=== PATIENT | male | born 1935 ===

== ENCOUNTER 2021-06-13 01:41 | Emergency (ER) | payer MEDICARE, BC ==
[~2021-06-13] VITALS: Ht 177.8 cm; Wt 102.1 kg
[~2021-06-13 01:41] MED LIST: ASPI325 PO; ATOR20 PO; Aspirin EC81 MG PO; BP MED; CLOP75 PO; DULO30 PO; FINASTERIDE1 MG PO; HYDACE5 PO; IBUP800 PO; LEVO750 PO; LOSA50 PO; LOSHYD100 PO; METO100ER PO; METO50ER PO; TAMS.4ER PO; TEMA30 PO
[2021-06-13 02:10] LABS: BASOPHILS ABSOLUTE AUTO 0.03 K/mm3 (0.00-0.23); BASOPHILS PERCENT AUTO 1 % (0-2); EOSINOPHILS PERCENT AUTO 5 % (0-6); Hemoglobin 12.9 g/dL (13.5-17.5); IMMATURE GRAN ABSOLUTE AUTO 0.02 K/mm3 (0.00-0.10); IMMATURE GRAN PERCENT AUTO 0 % (0-1); LYMPHOCYTES PERCENT AUTO 34 % (21-46); MONOCYTES ABSOLUTE AUTO 0.49 K/mm3 (0.16-1.47); MONOCYTES PERCENT AUTO 8 % (4-13); Mean Corpuscular HGB 31.1 pg (26.0-34.0); Mean Corpuscular HGB Conc 33.1 g/dL (31.5-36.5); Mean Corpuscular Volume 94 fL (80-100); Mean Platelet Volume 10.6 fL (9.1-12.4); NEUTROPHILS ABSOLUTE AUTO 3.38 K/mm3 (1.96-9.15); NEUTROPHILS PERCENT AUTO 53 % (41-73); Platelet Count 187 K/mm3 (150-400); RDW Standard Deviation 44.7 fL (35.1-46.3); Red Blood Cell Count 4.15 M/mm3 (4.30-5.90); White Blood Cell Count 6.42 K/mm3 (4.00-11.30)
[2021-06-13 02:24] LABS: Alanine Aminotransfer (ALT/SGP 14 U/L (12-78); Albumin, Blood 3.4 g/dL (3.4-5.0); Alk Phos 65 U/L (50-136); Anion Gap 4 mmol/L (6-16); Aspartate Aminotrans (AST/SGOT 12 U/L (12-37); Bilirubin, Total 0.4 mg/dL (0.1-1.0); Blood Urea Nitrogen 31 mg/dL (8-24); Bun/Creatinine Ratio 20.5 (12.0-20.0); CO2, Blood 32 mmol/L (21-32); Calcium, Blood 8.7 mg/dL (8.5-10.1); Chloride, Blood 103 mmol/L (98-108); Creatinine, Blood 1.51 mg/dL (0.60-1.20); Globulin, Blood 3.3 g/dL (2.2-4.0); Glomerular Filtration Rate 44 (60-); Glucose, Blood 102 mg/dL (70-99); Potassium, Blood 3.3 mmol/L (3.5-5.5); Sodium, Blood 139 mmol/L (136-145); Total Protein, Blood 6.7 g/dL (6.4-8.2); Troponin I <0.015 ng/mL (0.000-0.040)
[2021-06-13 03:19] LABS: Ethanol (Alcohol), Blood, Med <3 mg/dL
[2021-06-13 04:11] LABS: Source, Urine Clean Catch
[2021-06-13 04:12] LABS: Appearance, Urine Clear (Clear); Bilirubin, Urine Neg (Neg); Blood, Urine Neg (Neg); Color, Urine Yellow (P-Yellow); Glucose Qualitative, Urine Neg (Neg); Ketones, Urine Neg (Neg); Leukocyte Esterase, Urine 1+ (Neg); Nitrite, Urine Neg (Neg); Protein, Urine Neg (Neg); Specific Gravity, Urine 1.015 (1.003-1.022); Urobilinogen, Urine NORM (Normal)
[2021-06-13 04:20] LABS: Bacteria Mod /hpf; Hyaline Casts 0-2 /lpf (0-2); Red Blood Cells, Urine 0-2 /hpf (0-2); Squamous Epithelial Cells Not Seen /hpf (Few); White Blood Cells, Urine 0-2 /hpf (0-5)
== END 2021-06-13 05:18 | disposition home or self-care (01) ==
LOC: ER 01:41
PROVIDERS: Emergency Medicine
DX: R29.6 Repeated falls (principal); R53.1 Weakness; I10 Essential (primary) hypertension; R42 Dizziness and giddiness; R11.0 Nausea; R19.7 Diarrhea, unspecified; Z91.013 Allergy to seafood; Z79.02 Long term (current) use of antithrombotics/antiplatelets; Z79.899 Other long term (current) drug therapy; Z87.891 Personal history of nicotine dependence
CPT/HCPCS: 36415; 71045; 80053; 81001; 83735; 83880; 84145; 84484; 85025; 87086; 93005; 93010; 96374; 99285-25; G0480; J2405

== ENCOUNTER → 2021-10-23 | Outpatient (CLI) | payer MEDICARE, BC ==
[2021-10-23 10:51] LABS: BASOPHILS ABSOLUTE AUTO 0.06 K/mm3 (0.00-0.23); BASOPHILS PERCENT AUTO 1 % (0-2); EOSINOPHILS ABSOLUTE AUTO 0.39 K/mm3 (0.00-0.68); EOSINOPHILS PERCENT AUTO 7 % (0-6); Hemoglobin 11.9 g/dL (13.5-17.5); IMMATURE GRAN ABSOLUTE AUTO 0.01 K/mm3 (0.00-0.10); IMMATURE GRAN PERCENT AUTO 0 % (0-1); LYMPHOCYTES ABSOLUTE AUTO 1.13 K/mm3 (0.84-5.20); LYMPHOCYTES PERCENT AUTO 21 % (21-46); MONOCYTES ABSOLUTE AUTO 0.41 K/mm3 (0.16-1.47); MONOCYTES PERCENT AUTO 8 % (4-13); Mean Corpuscular HGB 30.6 pg (26.0-34.0); Mean Corpuscular HGB Conc 32.2 g/dL (31.5-36.5); Mean Corpuscular Volume 95 fL (80-100); Mean Platelet Volume 9.7 fL (9.1-12.4); NEUTROPHILS ABSOLUTE AUTO 3.39 K/mm3 (1.96-9.15); NEUTROPHILS PERCENT AUTO 63 % (41-73); Platelet Count 222 K/mm3 (150-400); RDW Coefficient Variation 13.3 % (11.7-14.2); RDW Standard Deviation 46.5 fL (35.1-46.3); Red Blood Cell Count 3.89 M/mm3 (4.30-5.90); White Blood Cell Count 5.39 K/mm3 (4.00-11.30)
[2021-10-23 11:09] LABS: Albumin, Blood 3.4 g/dL (3.4-5.0); Albumin/Globulin Ratio 1.2 (0.8-1.8); Bilirubin, Total 0.6 mg/dL (0.1-1.0); Bun/Creatinine Ratio 12.5 (12.0-20.0); Calcium, Blood 9.1 mg/dL (8.5-10.1); Creatinine, Blood 1.28 mg/dL (0.60-1.20); Globulin, Blood 2.9 g/dL (2.2-4.0); Potassium, Blood 4.1 mmol/L (3.5-5.5); Thyroid Stimulating Hormone 1.065 uIU/mL (0.360-4.800); Total Protein, Blood 6.3 g/dL (6.4-8.2)
== END | disposition home or self-care (01) ==
LOC: LAB SHORT 10:44
PROVIDERS: Physician Assistant
DX: L03.90 Cellulitis, unspecified (principal); R53.83 Other fatigue; R60.9 Edema, unspecified
CPT/HCPCS: 80053; 83880; 84443; 85025

== ENCOUNTER 2021-11-15 12:00 | Emergency (ER) | payer MEDICARE, BC ==
[~2021-11-15] VITALS: Ht 177.8 cm; Wt 90.7 kg
[2021-11-15 13:10] LABS: BASOPHILS ABSOLUTE AUTO 0.04 K/mm3 (0.00-0.23); BASOPHILS PERCENT AUTO 1 % (0-2); EOSINOPHILS PERCENT AUTO 3 % (0-6); Hematocrit 41.3 % (37.0-53.0); Hemoglobin 13.3 g/dL (13.5-17.5); IMMATURE GRAN ABSOLUTE AUTO 0.01 K/mm3 (0.00-0.10); IMMATURE GRAN PERCENT AUTO 0 % (0-1); LYMPHOCYTES ABSOLUTE AUTO 0.84 K/mm3 (0.84-5.20); LYMPHOCYTES PERCENT AUTO 12 % (21-46); MONOCYTES ABSOLUTE AUTO 0.52 K/mm3 (0.16-1.47); MONOCYTES PERCENT AUTO 8 % (4-13); Mean Corpuscular HGB 30.5 pg (26.0-34.0); Mean Corpuscular HGB Conc 32.2 g/dL (31.5-36.5); Mean Corpuscular Volume 95 fL (80-100); NEUTROPHILS ABSOLUTE AUTO 5.14 K/mm3 (1.96-9.15); NEUTROPHILS PERCENT AUTO 76 % (41-73); Platelet Count 227 K/mm3 (150-400); RDW Coefficient Variation 13.2 % (11.7-14.2); RDW Standard Deviation 46.7 fL (35.1-46.3); Red Blood Cell Count 4.36 M/mm3 (4.30-5.90); White Blood Cell Count 6.75 K/mm3 (4.00-11.30)
[2021-11-15 13:44] LABS: Alanine Aminotransfer (ALT/SGP 16 U/L (12-78); Albumin, Blood 3.5 g/dL (3.4-5.0); Albumin/Globulin Ratio 1.1 (0.8-1.8); Alk Phos 77 U/L (50-136); Anion Gap 5 mmol/L (6-16); Aspartate Aminotrans (AST/SGOT 19 U/L (12-37); Bilirubin, Total 0.9 mg/dL (0.1-1.0); Blood Urea Nitrogen 19 mg/dL (8-24); Bun/Creatinine Ratio 16.7 (12.0-20.0); CO2, Blood 29 mmol/L (21-32); Calcium, Blood 9.1 mg/dL (8.5-10.1); Chloride, Blood 107 mmol/L (98-108); Creatinine, Blood 1.14 mg/dL (0.60-1.20); Globulin, Blood 3.1 g/dL (2.2-4.0); Glomerular Filtration Rate >60 (60-); Glucose, Blood 119 mg/dL (70-99); Sodium, Blood 141 mmol/L (136-145); Total Protein, Blood 6.6 g/dL (6.4-8.2); Troponin I <0.015 ng/mL (0.000-0.040)
== END 2021-11-15 15:52 | disposition home or self-care (01) ==
LOC: ER 12:00
PROVIDERS: Physician Assistant
DX: R29.6 Repeated falls (principal); I10 Essential (primary) hypertension; Z79.899 Other long term (current) drug therapy; Z87.891 Personal history of nicotine dependence
CPT/HCPCS: 36415; 71046; 80053; 84484; 85025; 93005; 93010; 99284-25

== ENCOUNTER 2021-11-16 13:34 | Emergency (ER) | payer MEDICARE, BC ==
[~2021-11-16] VITALS: Ht 177.8 cm; Wt 99.8 kg
[2021-12-01] MEDS ORDERED: FAMO20 PO (13:53)
[2021-12-01] MEDS ORDERED: 1/2 NS 250ml250 ML (13:54)
[2021-12-01] MEDS ORDERED: NIFE30ER PO (13:54)
== END 2021-11-16 16:39 | disposition home or self-care (01) ==
LOC: ER 13:34
DX: R42 Dizziness and giddiness (principal); R29.6 Repeated falls; M79.89 Other specified soft tissue disorders; R19.7 Diarrhea, unspecified; Z91.030 Bee allergy status; Z79.899 Other long term (current) drug therapy; I10 Essential (primary) hypertension; J44.9 Chronic obstructive pulmonary disease, unspecified; Z87.891 Personal history of nicotine dependence
CPT/HCPCS: 99283

== ENCOUNTER → 2022-03-06 | Outpatient (CLI) | payer MEDICARE, BC ==
[~2022-03-06] MED LIST changes: +1/2 NS 250ml250 ML; +FAMO20 PO; +NIFE30ER PO
[2022-03-06 10:37] LABS: CHOL/HDL RATIO 2.2; Cholesterol 123 mg/dL (50-200); HDL Cholesterol 57 mg/dL (>39); Low Density Lipoprotein Chol 56 mg/dL (0-110); Triglycerides 52 mg/dL (30-160); Very Low Density Lipoprot Chol 10 mg/dL (6-32)
[2022-03-07 07:13] LABS: % FREE PSA 25.2 % (.); PSA, FREE 0.54 ng/mL; PSA, ULTRASENSITIVE 2.14 ng/mL (0.000-4.000)
== END | disposition home or self-care (01) ==
LOC: LAB HH 09:36
PROVIDERS: Family Medicine
DX: N40.1 Benign prostatic hyperplasia with lower urinary tract symptoms (principal); E78.5 Hyperlipidemia, unspecified
CPT/HCPCS: 80061; 84153; 84154

== ENCOUNTER 2022-03-14 10:12 | Emergency (ER) | payer MEDICARE, BC ==
[~2022-03-14] VITALS: Ht 172.7 cm; Wt 81.7 kg
[2022-03-14] MEDS ORDERED: Ventolin5 MG/1 ML INH (10:33)
[2022-03-14] MEDS ORDERED: DOCUZEN 8.6-501 EACH PO (10:33)
[2022-03-14 10:56] LABS: BASOPHILS ABSOLUTE AUTO 0.04 K/mm3 (0.00-0.23); BASOPHILS PERCENT AUTO 1 % (0-2); EOSINOPHILS ABSOLUTE AUTO 0.58 K/mm3 (0.00-0.68); EOSINOPHILS PERCENT AUTO 7 % (0-6); IMMATURE GRAN ABSOLUTE AUTO 0.02 K/mm3 (0.00-0.10); IMMATURE GRAN PERCENT AUTO 0 % (0-1); LYMPHOCYTES PERCENT AUTO 18 % (21-46); MONOCYTES ABSOLUTE AUTO 0.65 K/mm3 (0.16-1.47); MONOCYTES PERCENT AUTO 8 % (4-13); Mean Corpuscular HGB 30.5 pg (26.0-34.0); Mean Corpuscular HGB Conc 32.4 g/dL (31.5-36.5); Mean Corpuscular Volume 94 fL (80-100); Mean Platelet Volume 10.4 fL (9.1-12.4); NEUTROPHILS ABSOLUTE AUTO 5.24 K/mm3 (1.96-9.15); NEUTROPHILS PERCENT AUTO 66 % (41-73); Platelet Count 179 K/mm3 (150-400); RDW Coefficient Variation 14.2 % (11.7-14.2); RDW Standard Deviation 49.4 fL (35.1-46.3); Red Blood Cell Count 3.93 M/mm3 (4.30-5.90); White Blood Cell Count 7.93 K/mm3 (4.00-11.30)
[2022-03-14 11:00] LABS: Source, Urine Clean Catch
[2022-03-14 11:06] LABS: Appearance, Urine Hazy (Clear); Bilirubin, Urine Neg (Neg); Blood, Urine 1+ (Neg); Color, Urine Yellow (P-Yellow); Glucose Qualitative, Urine Neg (Neg); Ketones, Urine Neg (Neg); Leukocyte Esterase, Urine 3+ (Neg); Nitrite, Urine Neg (Neg); Protein, Urine 1+ (Neg); Specific Gravity, Urine 1.005 (1.003-1.022); Urobilinogen, Urine NORM (Normal)
[2022-03-14 11:17] LABS: Bacteria Many /hpf; Squamous Epithelial Cells Rare /hpf (Few); Transitional Epithelial Cells Rare /hpf (0-Rare)
[2022-03-14 11:18] LABS: Hyaline Casts 0-2 /lpf (0-2); Renal Epithelial Rare /hpf (0-Rare)
[2022-03-14 11:18] LABS: Albumin, Blood 3.1 g/dL (3.4-5.0); Calcium, Blood 9.2 mg/dL (8.5-10.1); Creatinine, Blood 1.26 mg/dL (0.60-1.20); Globulin, Blood 3.2 g/dL (2.2-4.0); Potassium, Blood 4.2 mmol/L (3.5-5.5); Total Protein, Blood 6.3 g/dL (6.4-8.2)
[2022-03-14] MEDS ORDERED: CEFP200 PO (12:10)
[2022-03-14] MEDS ORDERED: AZIT250 PO (12:10)
== END 2022-03-14 15:09 | disposition home or self-care (01) ==
LOC: ER 10:12
PROVIDERS: Emergency Medicine
DX: N39.0 Urinary tract infection, site not specified (principal); R05.9 Cough, unspecified; I13.0 Hypertensive heart and chronic kidney disease with heart failure and stage 1 through stage 4 chronic kidney disease, or unspecified chronic kidney disease; N18.30 Chronic kidney disease, stage 3 unspecified; I50.9 Heart failure, unspecified; J44.9 Chronic obstructive pulmonary disease, unspecified; Z86.73 Personal history of transient ischemic attack (TIA), and cerebral infarction without residual deficits; E78.5 Hyperlipidemia, unspecified; F03.90 Unspecified dementia, unspecified severity, without behavioral disturbance, psychotic disturbance, mood disturbance, and anxiety; Z79.02 Long term (current) use of antithrombotics/antiplatelets; Z79.899 Other long term (current) drug therapy; Z91.013 Allergy to seafood
CPT/HCPCS: 71045; 80053; 81001; 85025; J0696

== ENCOUNTER 2022-04-19 04:33 | Emergency (ER) | payer MEDICARE, BC ==
[~2022-04-19] VITALS: Ht 180.3 cm; Wt 90.7 kg
[~2022-04-19 04:33] MED LIST changes: +AZIT250 PO; +CEFP200 PO; +DOCUZEN 8.6-501 EACH PO; +FURO20 PO; +MIRALAX17 GM PO; +Senno8.6 MG PO; +Ventolin5 MG/1 ML INH
== END 2022-04-19 06:36 | disposition home or self-care (01) ==
LOC: ER 04:33
DX: R06.00 Dyspnea, unspecified (principal); I10 Essential (primary) hypertension; J44.9 Chronic obstructive pulmonary disease, unspecified; Z87.891 Personal history of nicotine dependence; Z86.73 Personal history of transient ischemic attack (TIA), and cerebral infarction without residual deficits; Z79.899 Other long term (current) drug therapy
CPT/HCPCS: 93005; 93010; 99284-25

== ENCOUNTER 2022-05-01 15:27 | Inpatient (IN) | payer MEDICARE, BC ==
[~2022-05-01] VITALS: Ht 180.3 cm; Wt 84.0 kg
[~2022-05-01 15:27] MED LIST changes: +ONDA4ODT MM; +SULTRIDS PO
[2022-05-01 16:37] LABS: BASOPHILS ABSOLUTE AUTO 0.04 K/mm3 (0.00-0.23); BASOPHILS PERCENT AUTO 1 % (0-2); EOSINOPHILS ABSOLUTE AUTO 0.15 K/mm3 (0.00-0.68); EOSINOPHILS PERCENT AUTO 2 % (0-6); Hemoglobin 11.3 g/dL (13.5-17.5); IMMATURE GRAN ABSOLUTE AUTO 0.03 K/mm3 (0.00-0.10); IMMATURE GRAN PERCENT AUTO 0 % (0-1); LYMPHOCYTES ABSOLUTE AUTO 1.51 K/mm3 (0.84-5.20); LYMPHOCYTES PERCENT AUTO 19 % (21-46); MONOCYTES PERCENT AUTO 9 % (4-13); Mean Corpuscular HGB 30.5 pg (26.0-34.0); Mean Corpuscular HGB Conc 31.4 g/dL (31.5-36.5); Mean Corpuscular Volume 97 fL (80-100); NEUTROPHILS PERCENT AUTO 69 % (41-73); Platelet Count 249 K/mm3 (150-400); RDW Coefficient Variation 13.4 % (11.7-14.2); RDW Standard Deviation 48.4 fL (35.1-46.3); Red Blood Cell Count 3.71 M/mm3 (4.30-5.90); White Blood Cell Count 7.93 K/mm3 (4.00-11.30)
[2022-05-01 16:49] LABS: Magnesium, Blood 2.6 mg/dL (1.6-2.4)
[2022-05-01 16:50] LABS: Albumin, Blood 2.9 g/dL (3.4-5.0); Albumin/Globulin Ratio 0.9 (0.8-1.8); Bilirubin, Total 0.3 mg/dL (0.1-1.0); Bun/Creatinine Ratio 19.9 (12.0-20.0); Calcium, Blood 8.8 mg/dL (8.5-10.1); Creatinine, Blood 3.02 mg/dL (0.60-1.20); Globulin, Blood 3.2 g/dL (2.2-4.0); Potassium, Blood 5.3 mmol/L (3.5-5.5); Total Protein, Blood 6.1 g/dL (6.4-8.2)
[2022-05-01 21:13] LABS: Influenza A, PCR NEGATIVE (NEGATIVE); Influenza B, PCR NEGATIVE (NEGATIVE); Resp Syncytial Virus, PCR NEGATIVE (NEGATIVE); SARS-Cov-2 (COVID-19) PCR, MMC NEGATIVE (NEGATIVE)
[2022-05-01 22:42] LABS: Source, Urine Straight Cath
[2022-05-01 22:52] LABS: Appearance, Urine Hazy (Clear); Bilirubin, Urine Neg (Neg); Blood, Urine 2+ (Neg); Color, Urine Yellow (P-Yellow); Glucose Qualitative, Urine Neg (Neg); Ketones, Urine Neg (Neg); Leukocyte Esterase, Urine 3+ (Neg); Nitrite, Urine Neg (Neg); Protein, Urine 2+ (Neg); Specific Gravity, Urine 1.015 (1.003-1.022); Urobilinogen, Urine NORM (Normal)
[2022-05-01 23:02] LABS: Bacteria Many /hpf; Red Blood Cells, Urine 0-2 /hpf (0-2); Squamous Epithelial Cells Not Seen /hpf (Few); White Blood Cells, Urine 25-50 /hpf (0-5)
[2022-05-02] MEDS ORDERED: ONDA4ODT MM (04:13)
[2022-05-02] MEDS ORDERED: ALBU90OI (04:15)
[2022-05-02 05:47] LABS: Bun/Creatinine Ratio 21.1 (12.0-20.0); Calcium, Blood 8.7 mg/dL (8.5-10.1); Creatinine, Blood 2.61 mg/dL (0.60-1.20)
--- NOTE | 2022-05-02 07:30 | NUR ---
NEW ADMISSION FROM ER. PT A/O TO SELF AND PLACE VERY FORGETFUL AND NOTED CONFUSION. PT WOULD OCCASIONALLY YELL OUT LOUD FOR DIFFERENT REASONS HOWEVER WAS REDIREACTABLE. PT WITH INCONTINENT EPISODE AND PVR 420s. MATHEWS PLACED PER DR. MORTON. PRESSURE WOUND TO RIGHT BUTTCHEEK PICTURE TAKEN IN CHART. URINE VERY CLOUDY UA SENT AND POSITIVE FOR UTI. NS @125. HERNIA NOTED TO SCROTAL AREA.
--- NOTE | 2022-05-02 17:37 | NUR ---
SHIFT SUMMARY PATIENT DENIES PAIN, NAUSEA, AND SHORTNESS OF BREATH. PATIENT IS BEDREST, AWAITING PT EVAL. PATIENT INTERMITTENTLY CONFUSED. THIS MORNING PATIENT WAS A&O TO SELF, BUT THIS AFTERNOON PATIENT A&O X3. PATIENT DOES OCCASIONALLY YELL OUT, EDUCATED FIELD MARKETING ASSOCIATE LIGHT USE, PATIENT CONTINUED TO YELL OUT. ST EVAL THIS MORNING. NEW ORDERS FOR REGULAR DIET, MED WHOLE WITH APPLESAUCE, AND OCCASSIONAL SUPERVISION WHEN EATING. PATIENT PATIENT EATING AND DRINKING WELL. MATHEWS IS PATENT AND DRAINING YELLOW URINE. PATIENT IS PLEASANT AND COOPERATIVE WITH CARE.
--- NOTE | 2022-05-03 05:17 | NUR ---
SHIFT SUMMARY PT HAS BEEN CONFUSED THIS SHIFT. HE LAYS QUIETLY FOR A FEW MINUTES THEN YELLS OUT SYAING HE NEEDS TO LEAVE OR CANHE STAND AND GET SOMETHING. HE HAS ALSO BEEN HALLUCINATING. SPECIAL EDUCATION ADMINISTRATOR RAMIREZ TO REPORT RYTHYM CHANGES IN THE PT AND STRIPS WERE SENT TO THE CHART. DR WAS CALLED X2 TIMES TO NOTIFY BUT DID NOT RETURN THE CALLS. NO NEW ORDERS GIVEN. STONE PAVER AWARE. WILL ALERT DAY SHIFT OF MEDICATION RECONCILLIATION FOR CARDIAC MEDICATIONS. PT DENIES CHEST PAIN, SOB, OR DIZZINESS. BED IN LOWEST POSITION AND CALL LIGHT IN REACH
--- NOTE | 2022-05-03 18:03 | NUR ---
SHIFT SUMMARY PATIENT DENIES PAIN, NAUSEA, AND SHORTNESS OF BREATH. PATIENT IS A SBA WITH A FWW. PATIENT WORKED WITH PT TODAY. RECOMMENDED HOME HEALTH. PATIENT COGNITION SEEMS TO VARY THROUGHOUT SHIFT. OCCASSIONALLY PATIENT CAN TELL THIS RN WHERE HE IS AND WHERE HE NORMALLY LIVES, SOMETIMES PATIENT CAN ONLY TELL YOU HIS NAME. PATIENT DID HAVE HALLUCINATIONS THIS AFTERNOON, ASKING ABOUT THE "MAN" IN THE CORNER. CAREGIVER FROM [facility] VISITED. PATIENT DOES NOT FOLLOW DIRECTIONS WELL, FORGETS LIMITATIONS. PATIENT YELLS OUT FREQUENTLY, EDUCATED SERVER ASSISTANT LIGHT USE, PATIENT CONTINUES TO YELL OUT. PATIENT IS EATING AND DRINKING WELL. PATIENT IS MOSTLY PLEASANT AND COOPERATIVE WITH CARE. MATHEWS IS PATENT AND DRAINING PALE YELLOW URINE.
[2022-05-03 22:23] LABS: Chloride, Urine, Random 121 mmol/L (55-125); Sodium, Urine, Random 111 mmol/L (20-110)
--- NOTE | 2022-05-04 00:34 | NUR ---
TRANSFER NOTE PT WAS SOB BREATH AND GURGLING UPON SHIFT CHANGE. TAVARES REPORTED THAT A CAREGIVER CAME AND HAD FED HIM A CANDY HE MAY HAVE ASPIRATED ON. HE WAS ALSO SHOWING SIGNS OF FLUID OVERLOAD. PITTING EDEMA, COARSE CRACKLES ION LUNGS, 88% O2 ON RM O2. PT ALSO HAD A MENTATION CHANGE. THE PREVIOUS NIGHT HE WAS ALERT AND COULD HOLD A CONVERSATION. THIS EVENING HE WAS LETHARGIC AND SLURRED HIS WORDS TO THE POINT HE COULD NOT BE UNDERSTOOD.DR WAS NOTIFIED. FLUIDS DC'S, CHEST XRAY ORDERED, AND LASIX ORDERED AND GIVEN. 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 PT WAS STILL SOB AND COULD NOT COMMUNICATE HCEST PAIN. DECISION WAS MADE TO TRANSFER PT TO PCU BY . REPORT GIVEN AND ALL BELONGINGS TAKEN.
--- NOTE | 2022-05-04 01:05 | NUR ---
Pt transferred from medical floor 2330. BP stable, HR 60s (television camera operator reports 3rd degree heart black). MD notified and EKG ordered, showed 1st degree. MD said that if pt goes back into 3rd degree she would like for us to get EKG. RR 26-30, irregular breathing with wheezing and crackles and diminished, MD notified and assessed bedside. Ordered labs, chest xray. Pt is lethargic and only oriented to self and has garbled slurred really hard to understand speech. Pupils are pretty pinpoint and pt has trouble following commands, MD assessed and did follow some directions and appeared to be moving all 4 extremities, but still very hard to understand. tele: 1st degree 60s at this times, zoll is at bedside.
[2022-05-04 01:20] LABS: BASOPHILS ABSOLUTE AUTO 0.05 K/mm3 (0.00-0.23); BASOPHILS PERCENT AUTO 1 % (0-2); EOSINOPHILS ABSOLUTE AUTO 0.42 K/mm3 (0.00-0.68); EOSINOPHILS PERCENT AUTO 5 % (0-6); IMMATURE GRAN ABSOLUTE AUTO 0.02 K/mm3 (0.00-0.10); IMMATURE GRAN PERCENT AUTO 0 % (0-1); LYMPHOCYTES ABSOLUTE AUTO 1.54 K/mm3 (0.84-5.20); LYMPHOCYTES PERCENT AUTO 19 % (21-46); MONOCYTES ABSOLUTE AUTO 0.79 K/mm3 (0.16-1.47); MONOCYTES PERCENT AUTO 10 % (4-13); Mean Corpuscular HGB 30.2 pg (26.0-34.0); Mean Corpuscular HGB Conc 32.4 g/dL (31.5-36.5); Mean Corpuscular Volume 93 fL (80-100); Mean Platelet Volume 9.6 fL (9.1-12.4); NEUTROPHILS ABSOLUTE AUTO 5.22 K/mm3 (1.96-9.15); NEUTROPHILS PERCENT AUTO 65 % (41-73); Platelet Count 231 K/mm3 (150-400); RDW Coefficient Variation 13.1 % (11.7-14.2); RDW Standard Deviation 44.8 fL (35.1-46.3); Red Blood Cell Count 3.97 M/mm3 (4.30-5.90); White Blood Cell Count 8.04 K/mm3 (4.00-11.30)
[2022-05-04 01:39] LABS: Albumin/Globulin Ratio 0.9 (0.8-1.8); Bilirubin, Total 0.5 mg/dL (0.1-1.0); Bun/Creatinine Ratio 23.1 (12.0-20.0); Calcium, Blood 9.1 mg/dL (8.5-10.1); Creatinine, Blood 1.47 mg/dL (0.60-1.20); Globulin, Blood 3.2 g/dL (2.2-4.0); Potassium, Blood 4.3 mmol/L (3.5-5.5); Total Protein, Blood 6.2 g/dL (6.4-8.2)
--- NOTE | 2022-05-04 03:32 | NUR ---
Cardiology referral called into [facility]. [facility] notified me that is the stockbroker on for today. Consult will be given to at 0700 per heart center.
[2022-05-04 03:57] LABS: Magnesium, Blood 1.9 mg/dL (1.6-2.4); Phosphorus, Blood 2.6 mg/dL (2.5-4.9)
--- NOTE | 2022-05-04 04:07 | NUR ---
Cisco Engineer Note: Pt is lethargic, minimally responsive and hard to understand when pt does talk. Pupil are pinpoint and minimally responsive. MD assessed bedside. All extremities moved, but very weak on assessment. Respiratory status: RR 22-30 when he first arrived with crackles in lower lobes, wheezing in upper, irregular resp rate and weak cough, MD assessed bedside. Chest xray ordered, new labs. Pt on 2-3L oxygen, sating high 90s. towards earlier AM pt was trying to cough up sputum in upper airway, still pretty weak cough. Attempted to help suction, but pt is not moving the sputum up much. Tele: mainly 1st degree block. Tele did report 3rd degree block when pt arrived on the floor, but when we did EKG it showed 1st degree. Cardiac consult called in to [facility]. BNP elevated. Humphreys draining well.
--- NOTE | 2022-05-04 09:30 | NUR ---
PT ANGRY WHEN ATTEMPT MADE TO GIVE MEDS, STAtes "leave me alone, get out of here"
--- NOTE | 2022-05-04 11:57 | NUR ---
PT AWAKENED, INITIATING CONVERSATION, TELLS ME HE HS HAD BACK SURGERY IN THE PAST THAT DID NOT HELP DECREASE HIS PAIN, PT STATES HE NEEDS AT LEAST 32 OZ OF WATER TODAY HE IS BECOMING DEHYDRATED. PHONE CALL MADE TO PATIENTS BROTHER LUIS HE HAD CALLED EARLIER TO CHECK ON PATIENT. NO ANSWER AT [facility]IS NUMBER.
--- NOTE | 2022-05-04 17:41 | NUR ---
ALTERNATES BETWEEN SLEEPY , REFUSING CARE TO CONVERSANT AND JOKING. 2 PERSON ASSIST OOB TO COMMODE WITH USE OF GAIT BELT AND WALKER. PT DENIES PAIN. AUDIBLE WHEEZES AFTER EXERTION THOUGH PT DENIED SOB.SPOKE WITH PATINTS BROTHER AND WITH STAFF AT [facility] WHERE PATIENT LIVES
--- NOTE | 2022-05-04 20:36 | NUR ---
Assumed care 1900. SBP 70-80 upon arrival with MAP <65. MD notified and 10mg midodrine ordered and 500ml bolus ordered. Midodrine given and bolus is infusing. HR 60s. Pt is on 2L oxygen sating high 90s. RR: 22-30. Checking BP Q15min
--- NOTE | 2022-05-04 21:07 | NUR ---
Pt BP improved after 500ml bolus and midodrine 10mg, MAP now >65 and SBP >100. Will continue to monitor BP Q30 for the next few hours.
--- NOTE | 2022-05-05 04:01 | NUR ---
Sql Report Analyst Note, Pt is alert/ lethargic on and off. Oriented x3. Talking more and complete sentences tonight. Slept well overnight. Cooperative and took medications. BP was low at start of shift. SBP 70-80s and MAP <65. 500ml bolus, 10mg of midodrine given and MAP>65 and SBP >100. Tele: 1st degree & 2nd degree type 1 heart block rate 50-60s. Q2 turns completed. Humphreys in place and draining well, catheter care completed. Pt is on 2L oxygen sating mid-high 90s. 1/2 NS running 50ml/hr.
[2022-05-05 04:37] LABS: BASOPHILS ABSOLUTE AUTO 0.04 K/mm3 (0.00-0.23); BASOPHILS PERCENT AUTO 1 % (0-2); EOSINOPHILS ABSOLUTE AUTO 0.59 K/mm3 (0.00-0.68); EOSINOPHILS PERCENT AUTO 8 % (0-6); Hematocrit 34.5 % (37.0-53.0); IMMATURE GRAN ABSOLUTE AUTO 0.02 K/mm3 (0.00-0.10); IMMATURE GRAN PERCENT AUTO 0 % (0-1); LYMPHOCYTES ABSOLUTE AUTO 1.82 K/mm3 (0.84-5.20); LYMPHOCYTES PERCENT AUTO 24 % (21-46); MONOCYTES ABSOLUTE AUTO 0.79 K/mm3 (0.16-1.47); MONOCYTES PERCENT AUTO 10 % (4-13); Mean Corpuscular HGB 30.1 pg (26.0-34.0); Mean Corpuscular HGB Conc 31.9 g/dL (31.5-36.5); Mean Corpuscular Volume 95 fL (80-100); NEUTROPHILS ABSOLUTE AUTO 4.39 K/mm3 (1.96-9.15); NEUTROPHILS PERCENT AUTO 57 % (41-73); Platelet Count 223 K/mm3 (150-400); RDW Coefficient Variation 13.3 % (11.7-14.2); RDW Standard Deviation 46.3 fL (35.1-46.3); Red Blood Cell Count 3.65 M/mm3 (4.30-5.90); White Blood Cell Count 7.65 K/mm3 (4.00-11.30)
[2022-05-05 05:00] LABS: Bun/Creatinine Ratio 25.4 (12.0-20.0); Creatinine, Blood 1.42 mg/dL (0.60-1.20); Potassium, Blood 4.4 mmol/L (3.5-5.5)
--- NOTE | 2022-05-05 17:42 | NUR ---
SHIFT SUMMARY; ASSUMED CARE AT 0700. A/A/OX3 DURING SHIFT. COOPERATIVE WITH CARE. WORKED WITH PHYSICAL THERAPY AND AMBULATED WITH WALKER, UP TO CHAIR AT BEDSIDE. ENCOURAGED CONTINUED MOVEMENT TO GAIN STRENGTH. VSS, SATS 95% ON RA. SPEECH EVAL TODAY. MATHEWS IN PLACE DRAINING TO GRAVITY. MEPILEX ON SACRUM FOR REDNESS AND LIGHT BREAKDOWN. NS INFUSING AT 50ML/HR. WILL CONTINUE TO MONITOR AND TREAT UNTIL CHANGE OF SHIFT.
--- NOTE | 2022-05-05 20:29 | NUR ---
Assumed care 1900. VSS on RA. Pt alert and oreinted x3. Tele: 1st degree/ 2nd degree type 1 60-70s. Juliann patent and draining. Will continue to monitor.
--- NOTE | 2022-05-05 21:50 | NUR ---
Pt was requesting inhaler instead of albuterol neb, Called Dr. Garrison and new order placed prn.
--- NOTE | 2022-05-06 04:18 | NUR ---
Property Claims Adjuster Note: Pt is alert and oriented x3. Pt will call out and not use call light often, with frequent reminders. VSS on RA. Q2hr turns completed. 1/2NS running at 50ml/hr. Humphreys in place and draining well. Tele: 1st degree/ 2nd degree type 1 HR in 50-70s. Wound on buttocks w/ mepalex and small sore near penis. Multiple other small skin tears, brusing and reddended skin.
--- NOTE | 2022-05-06 18:26 | NUR ---
DAYSHIFT SUMMARY Patient transferred from PCU, handoff report given by Jess HAYES. Patient AO, disoriented to time/situation at times. Normal saline infusing via left AC. Humphreys cath in place, draining to gravity, urine WNL. Patient worked with therapy SBAx1 for mobility. Aspiration precautions ordered, supervision during meals per PLATE MILL HAND order. Vitals stable.
[2022-05-07 05:09] LABS: BASOPHILS ABSOLUTE AUTO 0.03 K/mm3 (0.00-0.23); BASOPHILS PERCENT AUTO 1 % (0-2); EOSINOPHILS ABSOLUTE AUTO 0.49 K/mm3 (0.00-0.68); EOSINOPHILS PERCENT AUTO 8 % (0-6); Hemoglobin 10.8 g/dL (13.5-17.5); IMMATURE GRAN ABSOLUTE AUTO 0.01 K/mm3 (0.00-0.10); IMMATURE GRAN PERCENT AUTO 0 % (0-1); LYMPHOCYTES ABSOLUTE AUTO 1.66 K/mm3 (0.84-5.20); LYMPHOCYTES PERCENT AUTO 28 % (21-46); MONOCYTES ABSOLUTE AUTO 0.55 K/mm3 (0.16-1.47); MONOCYTES PERCENT AUTO 9 % (4-13); Mean Corpuscular HGB 30.8 pg (26.0-34.0); Mean Corpuscular HGB Conc 32.7 g/dL (31.5-36.5); Mean Corpuscular Volume 94 fL (80-100); Mean Platelet Volume 9.9 fL (9.1-12.4); NEUTROPHILS ABSOLUTE AUTO 3.11 K/mm3 (1.96-9.15); NEUTROPHILS PERCENT AUTO 53 % (41-73); Platelet Count 208 K/mm3 (150-400); RDW Coefficient Variation 13.4 % (11.7-14.2); RDW Standard Deviation 46.4 fL (35.1-46.3); Red Blood Cell Count 3.51 M/mm3 (4.30-5.90); White Blood Cell Count 5.85 K/mm3 (4.00-11.30)
[2022-05-07 05:53] LABS: Albumin, Blood 2.3 g/dL (3.4-5.0); Anion Gap 5 mmol/L (6-16); Blood Urea Nitrogen 18 mg/dL (8-24); Bun/Creatinine Ratio 19.3 (12.0-20.0); CO2, Blood 31 mmol/L (21-32); Calcium, Blood 8.7 mg/dL (8.5-10.1); Chloride, Blood 107 mmol/L (98-108); Creatinine, Blood 0.93 mg/dL (0.60-1.20); Glomerular Filtration Rate 79 (60-); Glucose, Blood 90 mg/dL (70-99); Magnesium, Blood 1.7 mg/dL (1.6-2.4); Phosphorus, Blood 2.3 mg/dL (2.5-4.9); Potassium, Blood 4.1 mmol/L (3.5-5.5); Sodium, Blood 143 mmol/L (136-145)
--- NOTE | 2022-05-07 11:00 | NUR ---
PATIENTS THOUGHTS ARE FOCUSED ON THE BANDS HE NEEDS FOR STRENGTH TRAINING HIS EXTREMITIES SO THAT HE WILL BE ABLE TO PASS THE "STATE STRENGTH TEST" IN ORDER TO GO BACK TO HIS [facility]. PT WAS UPDATED, AND ALTHOUGH THEY HAD NOT PLANNED ON VISITING THIS PATIENT TODAY, THEY WILL MAKE TIME TO TALK WITH HIM AND PROVIDE HIM WITH WHAT HE NEEDS. PATIENT ALSO TALKS ABOUT AN INHALER THAT HE NEEDS- THERE IS A NEW ORDER OF TODAY, FOR AN INHALER.
--- NOTE | 2022-05-07 16:58 | NUR ---
PATEINT HAS BEEN IN A GOOD MOOD THIS SHIFT. HE WORKED WITH PT, WALKING THE HALLWAY. HE HAS EXERCISE BANDS IN HIS ROOM FOR STRENGTHENING. HE REQUESTED MILK WITH MEALS (THICK IT NEEDED FOR NECTER THICK CONSISTENCY). APPETITE APPEARS TO BE SOMEWHAT DECREASED BUT HE EATS A SMALL PORTION OF EACH MEAL. LUNG SOUNDS ARE DIMINISHED BUT THEY DO NOT SOUND COURSE. PLAN IS A DISCHARGE BACK TO HIS [facility] AFTER THEY ASSESS HIS STRENGTH.
--- NOTE | 2022-05-08 04:03 | NUR ---
SHIFT SUMMARY: A/OX3, 1-2 PERSON ASSIST WITH WALKER FOR AMBULATION. PT CONTINUED TO DECLINE REPOSITIONING THROUGHOUT THE NIGHT- REQUESTING TO LAY SUPINE REPORTING "THIS IS THE ONLY WAY I AM COMFORTABLE TO SLEEP". MATHEWS CATHETER REMAINS IN PLACE AND DRAINING WELL. NO COMPLAINTS OF PAIN OR SHORTNESS OF BREATH THROUGHOUT THE NIGHT. BED ALARM REMAINS ACTIVATED, CALL SILVA AND BELONINGS IN REACH, BED IN LOW POSITION.
[2022-05-08 05:40] LABS: BASOPHILS ABSOLUTE AUTO 0.03 K/mm3 (0.00-0.23); BASOPHILS PERCENT AUTO 1 % (0-2); EOSINOPHILS ABSOLUTE AUTO 0.49 K/mm3 (0.00-0.68); EOSINOPHILS PERCENT AUTO 9 % (0-6); Hematocrit 32.7 % (37.0-53.0); Hemoglobin 10.6 g/dL (13.5-17.5); IMMATURE GRAN ABSOLUTE AUTO 0.02 K/mm3 (0.00-0.10); IMMATURE GRAN PERCENT AUTO 0 % (0-1); LYMPHOCYTES ABSOLUTE AUTO 1.84 K/mm3 (0.84-5.20); LYMPHOCYTES PERCENT AUTO 34 % (21-46); MONOCYTES ABSOLUTE AUTO 0.47 K/mm3 (0.16-1.47); MONOCYTES PERCENT AUTO 9 % (4-13); Mean Corpuscular HGB 30.5 pg (26.0-34.0); Mean Corpuscular HGB Conc 32.4 g/dL (31.5-36.5); Mean Corpuscular Volume 94 fL (80-100); NEUTROPHILS ABSOLUTE AUTO 2.61 K/mm3 (1.96-9.15); NEUTROPHILS PERCENT AUTO 48 % (41-73); Platelet Count 208 K/mm3 (150-400); RDW Coefficient Variation 13.3 % (11.7-14.2); RDW Standard Deviation 46.1 fL (35.1-46.3); Red Blood Cell Count 3.47 M/mm3 (4.30-5.90); White Blood Cell Count 5.46 K/mm3 (4.00-11.30)
[2022-05-08 05:57] LABS: Albumin, Blood 2.4 g/dL (3.4-5.0); Anion Gap 3 mmol/L (6-16); Blood Urea Nitrogen 15 mg/dL (8-24); Bun/Creatinine Ratio 15.9 (12.0-20.0); CO2, Blood 32 mmol/L (21-32); Calcium, Blood 8.7 mg/dL (8.5-10.1); Chloride, Blood 107 mmol/L (98-108); Creatinine, Blood 0.95 mg/dL (0.60-1.20); Glomerular Filtration Rate 77 (60-); Glucose, Blood 93 mg/dL (70-99); Magnesium, Blood 1.7 mg/dL (1.6-2.4); Phosphorus, Blood 2.3 mg/dL (2.5-4.9); Potassium, Blood 4.2 mmol/L (3.5-5.5); Sodium, Blood 142 mmol/L (136-145)
--- NOTE | 2022-05-08 17:23 | NUR ---
SHIFT SUMMARY- PT ALERT AND ORIENTED X3 POOR HISTORIAN. PT SEEMS TO BE FIXATED ON BEING EVALUATED TO GO HOME TOMORROW TO HIS [facility]. PT GOT UP AND WORKED WITH PHYSICAL THERAPY AND THEN BECAME ANGRY WITH STAFF WHEN THEY WERE UNABLE TO TAKE TIME, WHEN HE WANTED, TO TAKE HIM FOR A WALK AND TO DO HIS SIT TO STAND EXERCISES. PT BECAME ANGRY AND USED NAME CALLING A RESORT, INSISTING STAFF WERE JUST LAZY. EVENTUALLY STAFF WERE ABLE TO STAND BY WHILE THE PT PERFORMED HIS EXERCISES AND ASSIT HIM TO AMBULATE IN THE HALLS. PT DID MULTIPLE SIT TO STANDS. THE PT IS UNDER THE IMPRESSION THAT IF HE DOES NOT PASS HIS TESTING TOMORROW HE WILL BE HOMELESS, SO HE IS DEDICATED TO GETTING STRONGER.
--- NOTE | 2022-05-09 05:40 | NUR ---
SHIFT SUMMARY: A/OX3, 2 PERSON ASSIST TO TURN IN BED. PT CONTINUES TO DECLINE FULL BODY REPOSITIONING TO LAY ON SIDE. REQUEST TO LAY SUPINE FOR SLEEP. CONTINUED ENCOURAGEMENT FOR TURNING AND REPOSITIONING. NO COMPLAINTS OF PAIN OR SHORTNESS OF BREATH THROUGHOUT THE NIGHT. MATHEWS CATH REMAINS IN PLACE, DRAINING WELL WITH ADEQUATE OUTPUT.
[2022-05-09 06:16] LABS: BASOPHILS ABSOLUTE AUTO 0.03 K/mm3 (0.00-0.23); BASOPHILS PERCENT AUTO 1 % (0-2); EOSINOPHILS ABSOLUTE AUTO 0.57 K/mm3 (0.00-0.68); EOSINOPHILS PERCENT AUTO 10 % (0-6); Hematocrit 32.6 % (37.0-53.0); Hemoglobin 10.4 g/dL (13.5-17.5); IMMATURE GRAN ABSOLUTE AUTO 0.01 K/mm3 (0.00-0.10); IMMATURE GRAN PERCENT AUTO 0 % (0-1); LYMPHOCYTES ABSOLUTE AUTO 1.75 K/mm3 (0.84-5.20); LYMPHOCYTES PERCENT AUTO 29 % (21-46); MONOCYTES PERCENT AUTO 8 % (4-13); Mean Corpuscular HGB 30.5 pg (26.0-34.0); Mean Corpuscular HGB Conc 31.9 g/dL (31.5-36.5); Mean Corpuscular Volume 96 fL (80-100); Mean Platelet Volume 10.3 fL (9.1-12.4); NEUTROPHILS ABSOLUTE AUTO 3.17 K/mm3 (1.96-9.15); NEUTROPHILS PERCENT AUTO 53 % (41-73); Platelet Count 220 K/mm3 (150-400); RDW Coefficient Variation 13.6 % (11.7-14.2); RDW Standard Deviation 47.8 fL (35.1-46.3); Red Blood Cell Count 3.41 M/mm3 (4.30-5.90); White Blood Cell Count 6.03 K/mm3 (4.00-11.30)
[2022-05-09 06:25] LABS: Albumin, Blood 2.3 g/dL (3.4-5.0); Anion Gap 2 mmol/L (6-16); Blood Urea Nitrogen 13 mg/dL (8-24); Bun/Creatinine Ratio 11.6 (12.0-20.0); CO2, Blood 32 mmol/L (21-32); Calcium, Blood 8.3 mg/dL (8.5-10.1); Chloride, Blood 106 mmol/L (98-108); Creatinine, Blood 1.12 mg/dL (0.60-1.20); Glomerular Filtration Rate 63 (60-); Glucose, Blood 95 mg/dL (70-99); Phosphorus, Blood 3.1 mg/dL (2.5-4.9); Potassium, Blood 4.4 mmol/L (3.5-5.5); Sodium, Blood 140 mmol/L (136-145)
[2022-05-09] MEDS ORDERED: QUET25 PO (11:38)
[2022-05-09] MEDS ORDERED: CEFD300 PO (11:38)
--- NOTE | 2022-05-09 16:29 | NUR ---
DISCHARGE NOTE- PT WAS GIVEN VERBAL AND WRITTEN DISCHARGE INSTRUCTIONS AND WAS TAKEN VIA W/C TRANSPORT TO HIS [facility]. PT ACKNOWLEDGED UNDERSTANDING OF THE INSTRUCTIONS, THE POULTRY DEBEAKER OF THE TRANSPORT TOOK THE DISCHARGE PAPERS TO PROVIDE TO THE [facility] STAFF WHEN THE PT ARRIVES. NO S&S OF DISTRESS AT THE TIME OF DISCHARGE, IV'S AND TELE DC'D EARLIER IN THE SHIFT.
[2022-05-29] MEDS ORDERED: CEPH500 PO (21:19)
[2022-07-01] MEDS ORDERED: CEFP200 PO (13:38)
[2022-07-06] MEDS ORDERED: FURO20 PO (17:11)
[2022-07-06] MEDS ORDERED: Acetaminophen325 M1 PO (17:11)
== END 2022-05-09 16:25 | disposition home health service (06) | DRG 682 ==
LOC: ER 15:27 → MEDS 18:55 → PCU 05-04 00:30 → MEDS 05-06 12:57
PROVIDERS: Emergency Medicine; Family Medicine; Hospitalist; ADMIT Internal Medicine
DX: N17.9 Acute kidney failure, unspecified (principal); G92.9 Unspecified toxic encephalopathy; I50.33 Acute on chronic diastolic (congestive) heart failure; I13.0 Hypertensive heart and chronic kidney disease with heart failure and stage 1 through stage 4 chronic kidney disease, or unspecified chronic kidney disease; N39.0 Urinary tract infection, site not specified; I95.9 Hypotension, unspecified; N18.30 Chronic kidney disease, stage 3 unspecified; I44.1 Atrioventricular block, second degree; J44.9 Chronic obstructive pulmonary disease, unspecified; R09.02 Hypoxemia; Z20.822 Contact with and (suspected) exposure to COVID-19; R33.9 Retention of urine, unspecified; N40.1 Benign prostatic hyperplasia with lower urinary tract symptoms; N31.9 Neuromuscular dysfunction of bladder, unspecified; E78.5 Hyperlipidemia, unspecified; K57.90 Diverticulosis of intestine, part unspecified, without perforation or abscess without bleeding; F03.90 Unspecified dementia, unspecified severity, without behavioral disturbance, psychotic disturbance, mood disturbance, and anxiety; E78.00 Pure hypercholesterolemia, unspecified; M48.061 Spinal stenosis, lumbar region without neurogenic claudication; B96.5 Pseudomonas (aeruginosa) (mallei) (pseudomallei) as the cause of diseases classified elsewhere; L98.419 Non-pressure chronic ulcer of buttock with unspecified severity; Z86.73 Personal history of transient ischemic attack (TIA), and cerebral infarction without residual deficits; Z90.79 Acquired absence of other genital organ(s); Z79.899 Other long term (current) drug therapy; Z98.49 Cataract extraction status, unspecified eye; Z98.890 Other specified postprocedural states; Z91.013 Allergy to seafood; Z79.51 Long term (current) use of inhaled steroids; Z79.02 Long term (current) use of antithrombotics/antiplatelets; Z79.01 Long term (current) use of anticoagulants; Z87.891 Personal history of nicotine dependence
CPT/HCPCS: 0241U; 36415; 71045; 76770; 80048; 80053; 80069; 81001; 82436; 82947; 83735; 83880; 84100; 84300; 84484; 85025; 87077; 87086; 87186; 92526; 92610; 93005; 93010; 94640; 94664; 94760; 94762; 96374; 97110; 97116; 97162; 97530; 99283; 99285-25; A9270; J0696; J1644; J1940; J3475; J7030; J7040; J7060

== ENCOUNTER → 2022-06-08 | Outpatient (CLI) | payer MEDICARE, BC ==
[~2022-06-08] MED LIST changes: +ALBU90OI; +CEFD300 PO; +CEPH500 PO; +QUET25 PO
[2022-06-08 18:55] LABS: BASOPHILS ABSOLUTE AUTO 0.04 K/mm3 (0.00-0.23); BASOPHILS PERCENT AUTO 1 % (0-2); EOSINOPHILS ABSOLUTE AUTO 0.38 K/mm3 (0.00-0.68); EOSINOPHILS PERCENT AUTO 7 % (0-6); Hematocrit 34.1 % (37.0-53.0); Hemoglobin 10.9 g/dL (13.5-17.5); IMMATURE GRAN ABSOLUTE AUTO 0.01 K/mm3 (0.00-0.10); IMMATURE GRAN PERCENT AUTO 0 % (0-1); LYMPHOCYTES PERCENT AUTO 26 % (21-46); MONOCYTES PERCENT AUTO 9 % (4-13); Mean Corpuscular HGB 30.4 pg (26.0-34.0); Mean Corpuscular Volume 95 fL (80-100); Mean Platelet Volume 10.3 fL (9.1-12.4); NEUTROPHILS ABSOLUTE AUTO 3.03 K/mm3 (1.96-9.15); NEUTROPHILS PERCENT AUTO 57 % (41-73); Platelet Count 218 K/mm3 (150-400); RDW Coefficient Variation 13.7 % (11.7-14.2); RDW Standard Deviation 48.1 fL (35.1-46.3); Red Blood Cell Count 3.59 M/mm3 (4.30-5.90); White Blood Cell Count 5.36 K/mm3 (4.00-11.30)
[2022-06-08 20:01] LABS: Albumin, Blood 2.7 g/dL (3.4-5.0); Anion Gap 6 mmol/L (6-16); Blood Urea Nitrogen 19 mg/dL (8-24); Bun/Creatinine Ratio 18.3 (12.0-20.0); CO2, Blood 28 mmol/L (21-32); Calcium, Blood 8.5 mg/dL (8.5-10.1); Chloride, Blood 106 mmol/L (98-108); Creatinine, Blood 1.04 mg/dL (0.60-1.20); Glomerular Filtration Rate 69 (60-); Glucose, Blood 119 mg/dL (70-99); Phosphorus, Blood 2.8 mg/dL (2.5-4.9); Potassium, Blood 3.8 mmol/L (3.5-5.5); Sodium, Blood 140 mmol/L (136-145)
== END | disposition home or self-care (01) ==
LOC: LAB SHORT 11:23 → LAB 11:23
PROVIDERS: Physician Assistant
DX: N18.31 Chronic kidney disease, stage 3a (principal)
CPT/HCPCS: 80069; 85025

== ENCOUNTER → 2022-08-21 | Outpatient (CLI) | payer MEDICARE, BC ==
[~2022-08-21] MED LIST changes: +Acetaminophen325 M1 PO
== END | disposition home or self-care (01) ==
LOC: LAB 12:36 → LAB SHORT 12:36
DX: A49.9 Bacterial infection, unspecified (principal); C44.622 Squamous cell carcinoma of skin of right upper limb, including shoulder
CPT/HCPCS: 87070; 87077; 87186; 87205

== ENCOUNTER 2022-10-03 07:21 | Day surgery (SDC) | payer MEDICARE, BC ==
[~2022-10-03] VITALS: Ht 180.3 cm; Wt 90.9 kg
[~2022-10-03 07:21] MED LIST changes: -ALBU90OI; +ALBU90OI INH
--- NOTE | 2022-10-03 09:51 | NUR ---
Wheelchair into Day Surgery from Radiology department. History, Chart, Medications and Allergies reviewed before start of procedure. Lungs wheezing throughout. No SOB noted. Pre-Op teaching done. Pt verbalizes understanding.
--- NOTE | 2022-10-03 15:16 | NUR ---
Mera Villegas warming gown applied. Discharge instructions reviewed with patient. Patient verbalizes understanding. Copy given to patient to take home. History, Chart, Medications and Allergies reviewed before start of procedure.Patient States Post-Procedure ride home has been arranged. Discharged via wheelchair to private car for ride home.
--- NOTE | 2022-10-04 07:11 | NUR ---
10/04/22 0711 Sudha Valles VERIFICATIONS: EDIT CHART.
== END 2022-10-03 15:19 | disposition home or self-care (01) ==
LOC: ORSCMMR 07:21 → NM 07:21 → ORSCMMR 07:23 → NM 08:00
PROVIDERS: Surgery
PROC: 07B50ZZ Excision of Right Axillary Lymphatic, Open Approach (ICD-10-PCS; principal; 2022-10-03 10:15)
PROC: 0HR7X73 Replacement of Abdomen Skin with Autologous Tissue Substitute, Full Thickness, External Approach (ICD-10-PCS; principal; 2022-10-03 10:15)
DX: C43.61 Malignant melanoma of right upper limb, including shoulder (principal); N18.30 Chronic kidney disease, stage 3 unspecified; F32.A Depression, unspecified; I50.32 Chronic diastolic (congestive) heart failure; K21.9 Gastro-esophageal reflux disease without esophagitis; E78.5 Hyperlipidemia, unspecified; I13.0 Hypertensive heart and chronic kidney disease with heart failure and stage 1 through stage 4 chronic kidney disease, or unspecified chronic kidney disease; Z86.73 Personal history of transient ischemic attack (TIA), and cerebral infarction without residual deficits; Z87.891 Personal history of nicotine dependence
CPT/HCPCS: 78195; 88305; 88307; 88341; 88342; A9270; A9520; J0690; J1100; J2370; J2405; J2704; J2795; J3010; J7120; Q9968

== ENCOUNTER → 2022-10-05 | Outpatient (CLI) | payer MEDICARE, BC ==
[~2022-10-05] MED LIST changes: +CIPR250 PO; +HYDR1TAB94 PO; +KLOR-CON 1010 ME1 PO; +MUPIROCIN1 G1 TOP; +SILVADENE20 G1 TOP
[2022-10-05 13:47] LABS: Source, Urine Clean Catch
[2022-10-05 14:18] LABS: Appearance, Urine Cloudy (Clear); Bilirubin, Urine Neg (Neg); Blood, Urine 4+ (Neg); Glucose Qualitative, Urine Neg (Neg); Ketones, Urine Neg (Neg); Leukocyte Esterase, Urine 3+ (Neg); Nitrite, Urine Pos (Neg); Protein, Urine 2+ (Neg); Specific Gravity, Urine 1.005 (1.003-1.022); Urobilinogen, Urine NORM (Normal)
[2022-10-05 14:26] LABS: Bacteria Many /hpf; Squamous Epithelial Cells Rare /hpf (Few)
[2022-10-05 14:27] LABS: Hyaline Casts 0-2 /lpf (0-2); White Blood Cells, Urine 50-100 /hpf (0-5)
[2022-10-05 14:30] LABS: Color, Urine Pale Yellow (P-Yellow)
== END | disposition home or self-care (01) ==
LOC: LAB SHORT 11:45
PROVIDERS: Family Medicine
DX: R30.0 Dysuria (principal)
CPT/HCPCS: 81001; 87077; 87086; 87186

== ENCOUNTER 2022-10-06 15:17 | Inpatient (IN) | payer MEDICARE, BC ==
[~2022-10-06] VITALS: Ht 180.3 cm; Wt 82.5 kg
[~2022-10-06 15:17] MED LIST changes: -CIPR250 PO; -HYDR1TAB94 PO; -KLOR-CON 1010 ME1 PO; -MUPIROCIN1 G1 TOP; -SILVADENE20 G1 TOP
[2022-10-06 15:59] LABS: BASOPHILS ABSOLUTE AUTO 0.03 K/mm3 (0.00-0.23); BASOPHILS PERCENT AUTO 0 % (0-2); EOSINOPHILS ABSOLUTE AUTO 0.44 K/mm3 (0.00-0.68); EOSINOPHILS PERCENT AUTO 6 % (0-6); Hematocrit 37.2 % (37.0-53.0); Hemoglobin 12.1 g/dL (13.5-17.5); IMMATURE GRAN ABSOLUTE AUTO 0.03 K/mm3 (0.00-0.10); IMMATURE GRAN PERCENT AUTO 0 % (0-1); LYMPHOCYTES ABSOLUTE AUTO 1.22 K/mm3 (0.84-5.20); LYMPHOCYTES PERCENT AUTO 15 % (21-46); MONOCYTES ABSOLUTE AUTO 0.64 K/mm3 (0.16-1.47); MONOCYTES PERCENT AUTO 8 % (4-13); Mean Corpuscular HGB 30.8 pg (26.0-34.0); Mean Corpuscular HGB Conc 32.5 g/dL (31.5-36.5); Mean Corpuscular Volume 95 fL (80-100); NEUTROPHILS ABSOLUTE AUTO 5.71 K/mm3 (1.96-9.15); NEUTROPHILS PERCENT AUTO 71 % (41-73); Platelet Count 218 K/mm3 (150-400); RDW Coefficient Variation 13.1 % (11.7-14.2); RDW Standard Deviation 45.7 fL (35.1-46.3); Red Blood Cell Count 3.93 M/mm3 (4.30-5.90); White Blood Cell Count 8.07 K/mm3 (4.00-11.30)
[2022-10-06 16:22] LABS: Albumin, Blood 2.9 g/dL (3.4-5.0); Albumin/Globulin Ratio 0.8 (0.8-1.8); Bilirubin, Total 0.4 mg/dL (0.1-1.0); Bun/Creatinine Ratio 27.3 (12.0-20.0); Calcium, Blood 8.8 mg/dL (8.5-10.1); Creatinine, Blood 1.1 mg/dL (0.60-1.20); Globulin, Blood 3.5 g/dL (2.2-4.0); Potassium, Blood 4.8 mmol/L (3.5-5.5); Total Protein, Blood 6.4 g/dL (6.4-8.2)
--- NOTE | 2022-10-07 05:23 | NUR ---
Assumed care of pt at 2240 as an ER admit. A/O to self, year, president, and situation only. Weakness noted t/o. Patient states he's been bedridden for about a year. No c/o pain. Maintains over 92% on RA. LS dim t/o. Denies CP/pressure, BP stable. Significant 3+ pitting edema to BLE. Ruth cath draining to gravity. Was draining thick sediment clear/yellow, after ruth replaced clear/yellow urine with no sediment. Dry/fragile skin. Patient reports skin cancer sites that have been biopsied and lymph nodes that have been removed. L under axilla stitches, RLQ stitches, and L forearm wound with graph site being managed outpatient with sponge in wound bed. Bandage changed this shift. Wound photos in chart.
[2022-10-07 05:53] LABS: Source, Urine Foley catheter
[2022-10-07 06:07] LABS: Appearance, Urine Clear (Clear); Bilirubin, Urine Neg (Neg); Blood, Urine 2+ (Neg); Color, Urine Yellow (P-Yellow); Glucose Qualitative, Urine Neg (Neg); Ketones, Urine Neg (Neg); Leukocyte Esterase, Urine 3+ (Neg); Nitrite, Urine Neg (Neg); Protein, Urine 1+ (Neg); Urobilinogen, Urine NORM (Normal)
[2022-10-07 06:19] LABS: Squamous Epithelial Cells Rare /hpf (Few); White Blood Cells, Urine 25-50 /hpf (0-5)
[2022-10-07 06:20] LABS: Bacteria Mod /hpf
[2022-10-07] MEDS ORDERED: KLOR-CON 1010 ME1 PO (06:26)
[2022-10-07] MEDS ORDERED: HYDR1TAB94 PO (06:34)
--- NOTE | 2022-10-07 10:15 | NUR ---
Pt sitting in chair and is A&OX2/3. Pt struggles with processing information and memory recall appears poor. Pt unbale to report reason for hospital stay and unable to report where he lives. Spoke with Dr Young and discussed case. Kirsten does not appear to have a POLST on file. Attempted to contact brother Itz who is listed as NOK. Left message with request for a return phone call. Attempted to contact aPpa Reid listed as healthcare sales representative uniforms on AD. Phone number is disconnected. Pt's home phone number listed is also disconnected. No address or phone number for where he lives now. Plan is to contact potential decision maker to discuss code status.
--- NOTE | 2022-10-07 13:17 | NUR ---
Received call back from Pt's brother Itz Reid. Provided update and reviewed plan of care. Received contact information for Papa Reid who is listed as healthcare retail representative on advanced directive. Also recieved contact information for [facility] where Pt resides. Called and spoke with Sasha at [facility] where Pt resides. Sasha reports Pt does not have a POLST that she is aware of. She reports at baseline Pt is A&O. 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 She states Pt does not take in much fluids. Offered therapeutic listening and reviewed plan of care. Sasha reports Pt's daughter has also been notified. Called and spoke with Pt's step son Papa who is listed on AD. Provided update and reviewed plan of care. He reports being unaware of any POLST. He reports it has been a while since he has been involved with Pt but Pt's wishes in the past are no heroic measures including no CPR or Intubation. ADF Sasha [phone] Step son Papa ([facility]) [phone] If Pt's mentation does not clear, he may benefit from cognitive evaluation if appropriate. Palliative Care will remain available.
--- NOTE | 2022-10-07 16:58 | NUR ---
SHIFT SUMMARY: PATIENT A&OX2-3. FORGETFUL AT TIMES AND NEEDING CONSTANT REORIENTATION. YELLS OUT OFTEN AND DOES NOT USES CALL LIGHT APPROPRIATELY. EDUCATE PT AND REASSURE HOURLY ROUNDING. VERBALIZE UNDERSTANDING THE IMPORTANCE OF USING CALL LIGHT. SLIGHTLY WALKER RIVER, EX- BROUGHT HEARING AID THIS AM. DENIES CP/CHEST DISCOMFORT. LUNGS CLEAR T/O TO AUSCULTATION. PATIENT PARTICIPATE WITH PT MOBILITY THIS AM. SITTING UP IN THE CHAIR FOR ABOUT 3 HRS AND REQUESTING TO TRANSFERRED BACK TO BED. UP WITH 1 ASSIST, FWW AND GAITBELT. RECIEVED SCHEDULED MEDS THIS SHIFT. MATHEWS PATENT DRAINING TO GRAVITY WITH YELLOW URINE AND SOME SEDIMENTS. IV TO R AC AND L FOREARM SALINE LOCKED. UPDATES GIVEN TO VISHAL CAREGIVER/ENERGY MANAGER RESIDENTIAL CARE WHERE THE PATIENT RESIDES PRIOR TO ADMISSION. ALL QUESTIONS ANSWERED AND NEW NO CONCERNS AT THIS TIME. VITAL SIGNS REVIEWED. Q2 TURNS. BED ALARM IS ON FOR SAFETY AND CALL LIGHT IN REACH.
[2022-10-07 20:19] LABS: BASOPHILS ABSOLUTE AUTO 0.02 K/mm3 (0.00-0.23); BASOPHILS PERCENT AUTO 0 % (0-2); EOSINOPHILS ABSOLUTE AUTO 0.18 K/mm3 (0.00-0.68); EOSINOPHILS PERCENT AUTO 2 % (0-6); Hematocrit 35.2 % (37.0-53.0); Hemoglobin 11.8 g/dL (13.5-17.5); IMMATURE GRAN ABSOLUTE AUTO 0.02 K/mm3 (0.00-0.10); IMMATURE GRAN PERCENT AUTO 0 % (0-1); LYMPHOCYTES ABSOLUTE AUTO 1.04 K/mm3 (0.84-5.20); LYMPHOCYTES PERCENT AUTO 13 % (21-46); MONOCYTES ABSOLUTE AUTO 0.57 K/mm3 (0.16-1.47); MONOCYTES PERCENT AUTO 7 % (4-13); Mean Corpuscular HGB 30.4 pg (26.0-34.0); Mean Corpuscular HGB Conc 33.5 g/dL (31.5-36.5); Mean Corpuscular Volume 91 fL (80-100); Mean Platelet Volume 10.1 fL (9.1-12.4); NEUTROPHILS ABSOLUTE AUTO 5.96 K/mm3 (1.96-9.15); NEUTROPHILS PERCENT AUTO 76 % (41-73); Platelet Count 212 K/mm3 (150-400); RDW Coefficient Variation 13.1 % (11.7-14.2); RDW Standard Deviation 43.2 fL (35.1-46.3); Red Blood Cell Count 3.88 M/mm3 (4.30-5.90); White Blood Cell Count 7.79 K/mm3 (4.00-11.30)
[2022-10-07 20:38] LABS: Albumin, Blood 2.6 g/dL (3.4-5.0); Albumin/Globulin Ratio 0.8 (0.8-1.8); Bilirubin, Total 0.8 mg/dL (0.1-1.0); Bun/Creatinine Ratio 28.5 (12.0-20.0); Calcium, Blood 8.6 mg/dL (8.5-10.1); Creatinine, Blood 0.84 mg/dL (0.60-1.20); Globulin, Blood 3.3 g/dL (2.2-4.0); Potassium, Blood 3.9 mmol/L (3.5-5.5); Total Protein, Blood 5.9 g/dL (6.4-8.2)
--- NOTE | 2022-10-08 04:21 | NUR ---
SHIFT SUMMARY NO OVERNIGHT EVENTS. PT ORIENTED X2/3. PT CALM AND COOPERATIVE, FORGETFUL. PT SLEPT WELL MOST OF SHIFT. DENIES ANY PAIN/SOB. RC IN PLACE, DRAINING CLEAR YELLOW URINE. CONTINUES IV ABX.
--- NOTE | 2022-10-08 18:24 | NUR ---
SHIFT SUMMARY: NO NEW CHANGES THIS SHIFT. PATIENT A&OX2-3. PLEASANT AND COOPERATIVE WITH CARE. FORGETFUL AT TIMES THAT NEEDED REORIENTATION. PATIENT FORGET TO USED THE CALL LIGHT THAT SOMETIMES HE YELLS OUT TO GET HIS ATTENTION. DENIES CP/CHEST DISCOMFORT. LUNGS CLEAR T/O TO AUSCULTATION. PATIENT REFUSED DRESSING CHANGED TO R FOREARM, BUT AGREED MIPELEX DRESSING CHANGED TO COCCYX AREA. PATIENT WAS UP IN THE CHAIR FOR LUNCH. TOLERATED SITTING UP IN THE CHAIR FOR ABOUT 2 HRS AND REQUESTED TO BE BACK IN BED. PATIENT HAD EXTRALARGE FORMED BROWN BM THIS PM. PATIENT HAS CHRONIC CATHETER FOR RETENTION, PATENT DRAINING TO GRAVITY WITH YELLOW URINE. Q2 TURN. IV TO R AC SALINE LOCKED. VITAL SIGNS REVIEWED. BED IN LOWEST POSITION, LOCKED AND BED ALARM ON FOR SAFETY. CALL LIGHT AND TELEPHONE WITHIN REACH.
[2022-10-09] MEDS ORDERED: MUPIROCIN1 G1 TOP (01:59)
[2022-10-09] MEDS ORDERED: SILVADENE20 G1 TOP (02:00)
[2022-10-09] MEDS ORDERED: CIPR250 PO (02:00)
[2022-10-09] MEDS ORDERED: MIRALAX17 GM PO (02:02)
[2022-10-09] MEDS ORDERED: NIFE30ER PO (02:02)
[2022-10-09] MEDS ORDERED: DOCUZEN 8.6-501 EACH PO (02:03)
--- NOTE | 2022-10-09 03:51 | NUR ---
SHIFT SUMMARY NO OVERNIGHT EVENTS. PT REPORTS INCREASE BACK PAIN, MEDICATED WITH PRN TYLENOL. REPOSITIONED PT HE ALLOWED. PT DENIES ANY OPTHER S/S OF DISTRESS. CONTINUES IV ABX. CHRONIC MATHEWS IN PLACE DRAINING YELLOW URINE. ABLE TO MAKE NEEDS KNOWN, CALL LIGHT IN REACH
--- NOTE | 2022-10-09 18:43 | NUR ---
SHIFT SUMMARY NO ACUTE CHANGES. POSSIBLE DC'D BACK TO [facility] TOMORROW. DR PEOPLES AT BEDSIDE TODAY AND CHANGED MEPALEX DRESSING ON PT'S RIGHT FOREARM. NO ORDERS GIVEN FOR DRESSING CHANGES. PT WORKED WITH PHYSICAL THERAPY TODAY AND WAS UP TO CHAIR FOR A SHORT TIME IN THE AM. PT HAD NO C/O PAIN OR SOB. PT A&OX3-4. USES CALL LIGHT APPROPRIATLY. BED IN LOWEST POSITION AND CALL LIGHT IN REACH.
--- NOTE | 2022-10-09 19:18 | NUR ---
SPOKE WITH DR. PEOPLES TODAY ABOUT PT'S DRESSING ON RIGHT FOREARM. REMOVED DRESSING AND ASSESSED AREA. NEW DRESSING APPLIED. DR PEOPLES VERBALIZED NO ORDERS FOR DRESSING CHANGES AND NO NEED TO CHANGE DRESSING LONG IT STAYS C/D/I. ALSO SPOKE WITH ABOUT [facility] CALL BOX WIRER'S CONCERN ABOUT PT'S EXCORIEATED BOTTOM AND HER WISH TO SWAB THE AREA. DR PEOPLES STATED STATED THAT A SWAB WAS NOT NECESSARY. NEW MEPALEX DRESSING PLACED THIS AFTERNOON. SCANT AMOUNT OF YELLOWISH DISCHARGE NOTED ON OLD DRESSING.
--- NOTE | 2022-10-09 20:10 | NUR ---
THE PATIENT IS AN 87 YEAR-OLD MALE WITH A DIAGNOSIS OF A UTI /C PSEDUDOMONAS. CONTACT PRECAUTIONS MAINTAINED. A&OX4. EFFECTIVELY COMMUNICATES NEEDS. CALL LIGHT WITIN REACH. BED LOW AND LOCKED. PATIENT EDUCATED REGARDING ASSISTED TRANSFERS PROVIDED. VSS. MATHEWS WELL-DRAINING. NO ACUTE SIGNS OR SYMPTOMS. WILL CONTINUE TO CLOSELY MONITOR.
--- NOTE | 2022-10-10 04:24 | NUR ---
SEISMOGRAPH RECORDER SUMMARY THE PATIENT IS A 87 YEAR-OLD MALE WITH A DIAGNOSIS OF A COMPLICATED UTI. CONTACT PRECAUTIONS MAINTAIN SECONDARY TO PSUDEMONAS. A&OX4 WITH SOME EVIDENCE OF SUNDOWNING. PATIENT EFFECITVELY COMMUNICATES NEEDS AND APPROPRIATELY USES CALL LIGHT. VSS. PAIN ASSESSED AND MEDICATED PER EMAR. PATIENT TOLERATING ABO THERAPY. NO ASE. MATHEWS CATHETER APPEARS TO BE WELL-DRAINING TO GRAVITY. NO ACUTE SIGNS OR SYMPTOMS. WILL CONTINUE TO CLOSELY MONITOR.
[2022-10-10 07:04] LABS: BASOPHILS ABSOLUTE AUTO 0.03 K/mm3 (0.00-0.23); BASOPHILS PERCENT AUTO 1 % (0-2); EOSINOPHILS ABSOLUTE AUTO 0.55 K/mm3 (0.00-0.68); EOSINOPHILS PERCENT AUTO 9 % (0-6); Hematocrit 31.4 % (37.0-53.0); Hemoglobin 10.2 g/dL (13.5-17.5); IMMATURE GRAN ABSOLUTE AUTO 0.01 K/mm3 (0.00-0.10); IMMATURE GRAN PERCENT AUTO 0 % (0-1); LYMPHOCYTES ABSOLUTE AUTO 1.45 K/mm3 (0.84-5.20); LYMPHOCYTES PERCENT AUTO 25 % (21-46); MONOCYTES ABSOLUTE AUTO 0.57 K/mm3 (0.16-1.47); MONOCYTES PERCENT AUTO 10 % (4-13); Mean Corpuscular HGB 30.4 pg (26.0-34.0); Mean Corpuscular HGB Conc 32.5 g/dL (31.5-36.5); Mean Corpuscular Volume 94 fL (80-100); Mean Platelet Volume 10.3 fL (9.1-12.4); NEUTROPHILS ABSOLUTE AUTO 3.29 K/mm3 (1.96-9.15); NEUTROPHILS PERCENT AUTO 56 % (41-73); Platelet Count 213 K/mm3 (150-400); RDW Coefficient Variation 13.2 % (11.7-14.2); RDW Standard Deviation 45.8 fL (35.1-46.3); Red Blood Cell Count 3.35 M/mm3 (4.30-5.90)
[2022-10-10 07:19] LABS: Bun/Creatinine Ratio 19.6 (12.0-20.0); Calcium, Blood 8.5 mg/dL (8.5-10.1); Creatinine, Blood 1.12 mg/dL (0.60-1.20); Potassium, Blood 3.7 mmol/L (3.5-5.5)
--- NOTE | 2022-10-10 18:17 | NUR ---
SHIFT SUMMARY NO ACUTE CHANGES TODAY. PT A&OX4 AND PLEASANT. PT DECLINED TO WORK WITH PHYSICAL THERAPY TODAY AND STATED THAT HE "DIDN'T FEEL LIKE DOING ANYTHING TODAY". PT SPENT THE MORNING MAKING PHONE CALLS. PT'S BLOOD PRESSURE IN THE AM WAS 83/35. DR PEOPLES NOTIFIED AND PT GIVEN 250 BOLUS OF NS. PT'S BP AFTER BOLUS WAS 123/58. NO C/O PAIN OR SOB. BED IN LOWEST POSITION AND CALL LIGHT IN REACH.
[2022-10-10 22:41] LABS: Vancomycin, Trough 19.2 ug/mL (5.0-10.0)
--- NOTE | 2022-10-11 08:26 | NUR ---
SHIFT SUMMARY ALERT AND ORIENTED X 2-3. VSS. DENIES PAIN. ASSIST X 2 TO CHAIR. MEPILEX DRSG TO ABD AND RT LOWER FOREARM INTACT. PT SLEPT OFF AND ON BETWEEN CARE. PT REFUSED TO Q2H TURNS AND WANTS TO BE LEFT ALONE TO SLEEP. BED ALARM ON. WILL CONTINUE TO MONITOR.
[2022-10-11 09:17] LABS: BASOPHILS ABSOLUTE AUTO 0.02 K/mm3 (0.00-0.23); BASOPHILS PERCENT AUTO 0 % (0-2); EOSINOPHILS ABSOLUTE AUTO 0.26 K/mm3 (0.00-0.68); EOSINOPHILS PERCENT AUTO 4 % (0-6); Hematocrit 33.6 % (37.0-53.0); IMMATURE GRAN ABSOLUTE AUTO 0.02 K/mm3 (0.00-0.10); IMMATURE GRAN PERCENT AUTO 0 % (0-1); LYMPHOCYTES ABSOLUTE AUTO 0.44 K/mm3 (0.84-5.20); LYMPHOCYTES PERCENT AUTO 7 % (21-46); MONOCYTES ABSOLUTE AUTO 0.49 K/mm3 (0.16-1.47); MONOCYTES PERCENT AUTO 8 % (4-13); Mean Corpuscular HGB 30.7 pg (26.0-34.0); Mean Corpuscular HGB Conc 32.7 g/dL (31.5-36.5); Mean Corpuscular Volume 94 fL (80-100); Mean Platelet Volume 9.7 fL (9.1-12.4); NEUTROPHILS ABSOLUTE AUTO 4.71 K/mm3 (1.96-9.15); NEUTROPHILS PERCENT AUTO 79 % (41-73); Platelet Count 195 K/mm3 (150-400); RDW Coefficient Variation 13.1 % (11.7-14.2); RDW Standard Deviation 44.9 fL (35.1-46.3); Red Blood Cell Count 3.58 M/mm3 (4.30-5.90); White Blood Cell Count 5.94 K/mm3 (4.00-11.30)
[2022-10-11 09:50] LABS: Bun/Creatinine Ratio 17.3 (12.0-20.0); Calcium, Blood 8.5 mg/dL (8.5-10.1); Creatinine, Blood 1.04 mg/dL (0.60-1.20); Potassium, Blood 4.1 mmol/L (3.5-5.5)
--- NOTE | 2022-10-11 17:20 | NUR ---
SHIFT SUMMARY PTN [place], HERE WITH UTI, AMS, A&O X3. RESTING MUCH OF DAY. CONTACT ISOLATION PRECAUTIONS. CHRONIC MATHEWS, DRAINING YELLOW URINE TO GRAVITY. DR PEOPLES IN TO SEE PTN, POSSIBLE D/C TOMORROW. WOUND TO BUTTOCKS, NO ODOR, SEROSANGUNIOUS DRAINAGE, PRESSURE, STAGE ii. WOUND CLEANED BY MAGALI HAYES, DRIED, AND COVERED WITH MEPILEX. CONTINUE TO MONITOR.
--- NOTE | 2022-10-12 03:12 | NUR ---
Patient resting in bed, no complaints of pain or discomfort.
[2022-10-12 05:42] LABS: BASOPHILS ABSOLUTE AUTO 0.02 K/mm3 (0.00-0.23); BASOPHILS PERCENT AUTO 1 % (0-2); EOSINOPHILS ABSOLUTE AUTO 0.16 K/mm3 (0.00-0.68); EOSINOPHILS PERCENT AUTO 4 % (0-6); Hematocrit 33.2 % (37.0-53.0); Hemoglobin 10.8 g/dL (13.5-17.5); IMMATURE GRAN ABSOLUTE AUTO 0.03 K/mm3 (0.00-0.10); IMMATURE GRAN PERCENT AUTO 1 % (0-1); LYMPHOCYTES ABSOLUTE AUTO 0.65 K/mm3 (0.84-5.20); LYMPHOCYTES PERCENT AUTO 15 % (21-46); MONOCYTES ABSOLUTE AUTO 0.68 K/mm3 (0.16-1.47); MONOCYTES PERCENT AUTO 15 % (4-13); Mean Corpuscular HGB 30.5 pg (26.0-34.0); Mean Corpuscular HGB Conc 32.5 g/dL (31.5-36.5); Mean Corpuscular Volume 94 fL (80-100); Mean Platelet Volume 9.8 fL (9.1-12.4); NEUTROPHILS ABSOLUTE AUTO 2.88 K/mm3 (1.96-9.15); NEUTROPHILS PERCENT AUTO 65 % (41-73); Platelet Count 184 K/mm3 (150-400); RDW Standard Deviation 44.9 fL (35.1-46.3); Red Blood Cell Count 3.54 M/mm3 (4.30-5.90); White Blood Cell Count 4.42 K/mm3 (4.00-11.30)
[2022-10-12 05:55] LABS: Bun/Creatinine Ratio 19.2 (12.0-20.0); Calcium, Blood 8.4 mg/dL (8.5-10.1); Creatinine, Blood 0.99 mg/dL (0.60-1.20); Potassium, Blood 3.8 mmol/L (3.5-5.5)
--- NOTE | 2022-10-12 14:56 | NUR ---
PUT IN A CALL TO DR. CROWLEY TO CHECK IF SHE WAS GOING TO ASSESS PT SKIN PRIOR TO D/C. LEFT A VOICEMAIL WITH DR. CROWLEY AND WILL CONTINUE TO TRY TO REACH OUT.
--- NOTE | 2022-10-12 17:25 | NUR ---
SHIFT SUMMARY: PATIENT ALERT AND ORIENTED X2-3. HAS BEEN COOPERATIVE WITH MOST CARE PROVIDED. PT REFUSED TO WORK WITH OT TODAY. PT HAD LOW SATS THIS MORNING OF 86-90%. OXYGEN WAS PROVIDED TO PT WHICH BROUGHT HIS SATS BACK TO MID 90'S. PT HAS NOT C/O OF SOB SINCE. PLAN IS FOR PATIENT TO D/C TOMORROW. PT WAS BROUGHT DOWN FOR A CHEST X-RAY AND AWAITING RESULTS. DR. CROWLEY WAS HERE TO SEE PT AND ASSESS WOUND ON RIGHT ARM. IV PATENT AND FLUSHING. CALL LIGHT IN REACH. BED IN LOWEST POSITION. WILL CONTINUE TO MONITOR.
[2022-10-12 22:28] LABS: Vancomycin, Trough 13.2 ug/mL (5.0-10.0)
--- NOTE | 2022-10-13 03:12 | NUR ---
Patient resting in bed at this time, no complaints of pain or discomfort.
[2022-10-13 05:30] LABS: BASOPHILS ABSOLUTE AUTO 0.02 K/mm3 (0.00-0.23); BASOPHILS PERCENT AUTO 1 % (0-2); EOSINOPHILS ABSOLUTE AUTO 0.11 K/mm3 (0.00-0.68); EOSINOPHILS PERCENT AUTO 3 % (0-6); Hematocrit 34.4 % (37.0-53.0); Hemoglobin 11.2 g/dL (13.5-17.5); IMMATURE GRAN ABSOLUTE AUTO 0.02 K/mm3 (0.00-0.10); IMMATURE GRAN PERCENT AUTO 1 % (0-1); LYMPHOCYTES ABSOLUTE AUTO 0.61 K/mm3 (0.84-5.20); LYMPHOCYTES PERCENT AUTO 16 % (21-46); MONOCYTES ABSOLUTE AUTO 0.67 K/mm3 (0.16-1.47); MONOCYTES PERCENT AUTO 17 % (4-13); Mean Corpuscular HGB 30.7 pg (26.0-34.0); Mean Corpuscular HGB Conc 32.6 g/dL (31.5-36.5); Mean Corpuscular Volume 94 fL (80-100); NEUTROPHILS ABSOLUTE AUTO 2.43 K/mm3 (1.96-9.15); NEUTROPHILS PERCENT AUTO 63 % (41-73); Platelet Count 193 K/mm3 (150-400); RDW Standard Deviation 45.4 fL (35.1-46.3); Red Blood Cell Count 3.65 M/mm3 (4.30-5.90); White Blood Cell Count 3.86 K/mm3 (4.00-11.30)
[2022-10-13 06:07] LABS: Bun/Creatinine Ratio 20.9 (12.0-20.0); Calcium, Blood 8.5 mg/dL (8.5-10.1); Creatinine, Blood 0.96 mg/dL (0.60-1.20); Potassium, Blood 3.9 mmol/L (3.5-5.5)
--- NOTE | 2022-10-13 16:52 | NUR ---
DISCHARGE: PT DISCHARGED AT 1645 VIA VAN WHEELCHAIR. PT WAS A 3 PERSON TRANSFER TO WHEELCHAIR. MATHEWS IN PLACE AND DRAINING. IV D/C W/O ANY ISSUES, PAIN, OR REDNESS. ALL BELONGINGS SENT WITH PT.
== END 2022-10-13 16:47 | disposition home health service (06) | DRG 699 ==
LOC: ER 15:17 → MEDS 15:18
PROVIDERS: Family Medicine; Physician Assistant; ADMIT Internal Medicine
DX: T83.511A Infection and inflammatory reaction due to indwelling urethral catheter, initial encounter (principal); F02.811 Dementia in other diseases classified elsewhere, unspecified severity, with agitation; G93.49 Other encephalopathy; I50.32 Chronic diastolic (congestive) heart failure; I13.0 Hypertensive heart and chronic kidney disease with heart failure and stage 1 through stage 4 chronic kidney disease, or unspecified chronic kidney disease; N30.90 Cystitis, unspecified without hematuria; N40.0 Benign prostatic hyperplasia without lower urinary tract symptoms; M48.00 Spinal stenosis, site unspecified; E86.0 Dehydration; E78.5 Hyperlipidemia, unspecified; B95.2 Enterococcus as the cause of diseases classified elsewhere; K21.9 Gastro-esophageal reflux disease without esophagitis; N18.30 Chronic kidney disease, stage 3 unspecified; J44.9 Chronic obstructive pulmonary disease, unspecified; B96.5 Pseudomonas (aeruginosa) (mallei) (pseudomallei) as the cause of diseases classified elsewhere; N31.9 Neuromuscular dysfunction of bladder, unspecified; R33.9 Retention of urine, unspecified; I44.1 Atrioventricular block, second degree; G30.9 Alzheimer's disease, unspecified; L89.322 Pressure ulcer of left buttock, stage 2; L89.312 Pressure ulcer of right buttock, stage 2; L89.152 Pressure ulcer of sacral region, stage 2; Z86.73 Personal history of transient ischemic attack (TIA), and cerebral infarction without residual deficits; Z98.890 Other specified postprocedural states; Z87.891 Personal history of nicotine dependence; Z91.013 Allergy to seafood; Z79.899 Other long term (current) drug therapy; Y84.6 Urinary catheterization as the cause of abnormal reaction of the patient, or of later complication, without mention of misadventure at the time of the procedure
CPT/HCPCS: 36415; 71045; 71046; 80048; 80053; 80202; 81001; 83880; 85025; 87077; 87086; 87186; 93005; 93010; 94640; 94664; 94760; 96360; 97110; 97161; 97166; 97530; 99285-25; A9270; J0360; J0713; J1650; J3370; J7030; J7050